=== PATIENT | female | born 1995 ===

== ENCOUNTER 2018-07-08 17:38 | Emergency (ER) | payer OTHER ==
[2018-07-08] MEDS ORDERED: Amoxicillin-Clav 875-125 mg Tab PO STA (21:02)
[2018-07-08] MEDS ORDERED: Amoxicillin-Clav 875-125 mg Tab PO ONE (21:16)
--- NOTE | 2018-07-08 22:07 | ED PDOC ---
HPI: Fever Time Seen by Provider: 07/08/18 19:18 Additional Comments: 23 year old female with no significant past medical history presents to the ED with a sore throat, fever and chills onset 1 day. Patient states that she woke up with a sore throat, chills, fever and body aches. Patient states that the last time she took medicine for her fever was 9X hours. Patient states that she is tolerating fluids PO. Patient also reports that she had a flu vaccine. Patient denies nausea, vomiting and diarrhea. PMD: None provided Past Medical History Reviewed: Historical Data, Nursing Documentation, Vital Signs Vital Signs: Last Vital Signs Temp 100.9 F H 07/08/18 20:49 Pulse 114 H 07/08/18 18:47 Resp 20 07/08/18 18:47 BP 124/88 07/08/18 18:47 Pulse Ox 97 07/08/18 18:47 JAVIER Report Viewed: Yes - Medical History PMH: No Chronic Diseases - Surgical History Surgical History: No Surg Hx - Family History Family History: States: No Known Family Hx - Home Medications Home Medications: Ambulatory Orders Medication Instructions Recorded Amoxicillin/Clavulanate [Augmentin 1 tab PO BID #14 tab 07/08/18 875 MG-125 MG] - Allergies Allergies/Adverse Reactions: Allergies Allergy/AdvReac Type Severity Reaction Status Date / Time No Known Allergies Allergy Verified 07/08/18 18:47 Review of Systems ROS Statement: Except As Marked, All Systems Reviewed And Found Negative Constitutional: Positive for: Fever, Chills ENT: Positive for: Other (Sore throat) Gastrointestinal: Negative for: Nausea, Vomiting, Diarrhea Musculoskeletal: Positive for: Other (Body aches) Physical Exam - Reviewed Nursing Documentation Reviewed: Yes Vital Signs Reviewed: Yes - Physical Exam Appears: Positive for: Uncomfortable (Febrile and tachycardic) Head Exam: Positive for: ATRAUMATIC, NORMOCEPHALIC Skin: Positive for: Normal Color, Warm, Dry Eye Exam: Positive for: Normal appearance, EOMI, PERRL ENT: Positive for: Other (Tonsil enlarged). Negative for: Tonsillar Exudate Neck: Positive for: Supple (Bilateral anterior cervical adenopathy ) Cardiovascular/Chest: Positive for: Regular Rate, Rhythm. Negative for: Murmur Respiratory: Positive for: Normal Breath Sounds. Negative for: Respiratory Distress Gastrointestinal/Abdominal: Positive for: Normal Exam, Soft. Negative for: Tenderness Extremity: Positive for: Normal ROM (upper and Lower). Negative for: Pedal King a Neurological/Psych: Positive for: Awake, Alert, Normal Tone, Oriented. Negative for: Motor/Sensory Deficits - Laboratory Results Result Diagrams: 07/08/18 22:44 07/08/18 22:44 - ECG O2 Sat by Pulse Oximetry: 97 (RA) Pulse Ox Interpretation: Normal Medical Decision Making Medical Decision Making: Time: 19:18 Initial Impression: 23 year old female with acute pharyngitis vs flu like symptoms Plan: -Urine -Amoxicillin/Clavulanate 1 tab PO -Ibuprofen 600 mg PO -Acetaminophen 975 mg PO STAT -predniSONE 60 mg PO STAT -Influenza A B -Rapid Strep Group A Antigen 2338 Labs reviewed and show no significant abnormality. Patient reports improvement in symptoms and stable for discharge. Diagnosis: strep pharyngitis Scribe Attestation: Documented by Leeanne Bill, acting as a scribe for Charanjit Ibanez MD Provider Scribe Attestation: All medical record entries made by the Scribe were at my direction and p ersonally dictated by me. I have reviewed the chart and agree that the record accurately reflects my personal performance of the history, physical exam, medical decision making, and the department course for this patient. I have also personally directed, reviewed, and agree with the discharge instructions and disposition Disposition - Clinical Impression Clinical Impression: Strep pharyngitis - Patient ED Disposition Is Patient to be Admitted: No - Disposition Disposition: Routine/Home Disposition Time: 23:38 Condition: STABLE Prescriptions: Amoxicillin/Clavulanate [Augmentin 875 MG-125 MG] 1 tab PO BID #14 tab Instructions: Strep Throat (DC) Forms: [employer] ([place])
[2018-07-08] MEDS ORDERED: Sodium Chloride 0.9% 1,000 ML IV STA (22:26)
[2018-07-08 22:49] LABS: BASO # 0.1 K/uL (0.0-0.2); BASO % 0.9 % (0.0-2.0); HEMOGLOBIN 10.8 g/dL (12.0-16.0); LYMPH # 0.7 K/uL (1.0-4.3); LYMPH % 5.6 % (20.0-40.0); MEAN CELL VOLUME 79.4 fl (81.0-99.0); MEAN CORPUSCULAR HEMOGLOBIN 25.5 pg (27.0-31.0); MEAN CORPUSCULAR HGB CONC 32.2 g/dL (33.0-37.0); MEAN PLATELET VOLUME 7.2 fl (7.2-11.7); MONO # 0.4 K/uL (0.0-0.8); MONO % 2.9 % (0.0-10.0); NEUT # 11.8 K/uL (1.8-7.0); NEUT % 90.6 % (50.0-75.0); PLATELET COUNT 453 K/uL (130-400); RBC 4.24 Mil/uL (3.80-5.20); RED CELL DISTRIBUTION WIDTH 15.4 % (11.5-14.5)
[2018-07-08 22:57] LABS: ALB/GLOB RATIO 1.2 (1.0-2.1); ALBUMIN 4.7 g/dL (3.5-5.0); ALT/SGPT 27 U/L (9-52); AST/SGOT 32 U/L (14-36); BLOOD UREA NITROGEN 13 mg/dl (7-17); CALCIUM 9.7 mg/dL (8.4-10.2); GFR NON-AFRICAN AMERICAN > 60
[2018-07-08 23:46] VITALS: BP 119/83; PULSE 82; RESP 16; TEMP 99; O2SAT 100
[2018-07-08 23:54] LABS: BANDS 4 % (0-2); BASOPHIL 1 % (0-2); HYPOCHROMIC SLIGHT; LYMPHOCYTE 6 % (20-50); MONOCYTE 3 % (0-10); NEUTROPHIL 86 % (42-75); PLATELET ESTIMATE SLIGHTLY INCREASED (NORMAL); TOTAL CELLS COUNTED 100
== END 2018-07-08 23:46 | disposition home or self-care (01) ==
LOC: H.ER 17:38
DX: J02.0 Streptococcal pharyngitis (principal)
CPT/HCPCS: 80053; 81025; 83605; 85025; 87040; 87205; 87430; 87804; 99284; J1885; J7030

== ENCOUNTER 2018-07-15 18:17 | Emergency (ER) | payer OTHER ==
[2018-07-15 18:50] VITALS: BP 129/72; PULSE 84; RESP 19; TEMP 98.8; O2SAT 99
--- NOTE | 2018-07-15 21:48 | ED PDOC ---
HPI: General Adult Time Seen by Provider: 07/15/18 21:20 Chief Complaint (Nursing): Abnormal Labs Chief Complaint (Provider): Abnormal Labs History Per: Patient History/Exam Limitations: no limitations Onset/Duration Of Symptoms: Days Current Symptoms Are (Timing): Still Present Additional Complaint(s): 23 y/o female with no significant PMHx presents to the ED after receiving a call to return to the ED for abnormal labs. Patient was seen in this ED seven days ago for evaluation of a sore throat, fever and chills. At that time, patient had blood cultures drawn that have now resulted positive. Patient reports of finishing course of Augmentin. Patient denies any complaints at this time. PMD: no provider Past Medical History Reviewed: Historical Data, Nursing Documentation, Vital Signs Vital Signs: Last Vital Signs Temp 98.8 F 07/15/18 18:47 Pulse 84 07/15/18 18:47 Resp 19 07/15/18 18:47 BP 129/72 07/15/18 18:47 Pulse Ox 99 07/15/18 18:47 - Medical History PMH: No Chronic Diseases - Surgical History Surgical History: No Surg Hx - Family History Family History: States: Unknown Family Hx - Home Medications Home Medications: Ambulatory Orders Medication Instructions Recorded Amoxicillin/Clavulanate [Augmentin 1 tab PO BID #14 tab 07/08/18 875 MG-125 MG] Amoxicillin/Clavulanate [Augmentin 1 tab PO BID #6 tab 07/15/18 875 MG-125 MG] - Allergies Allergies/Adverse Reactions: Allergies Allergy/AdvReac Type Severity Reaction Status Date / Time No Known Allergies Allergy Verified 07/08/18 18:47 Review of Systems ROS Statement: Except As Marked, All Systems Reviewed And Found Negative Constitutional: Positive for: Other (abnormal labs) Physical Exam - Reviewed Nursing Documentation Reviewed: Yes Vital Signs Reviewed: Yes - Physical Exam Appears: Positive for: No Acute Distress Head Exam: Positive for: ATRAUMATIC, NORMOCEPHALIC Skin: Positive for: Normal Color, Warm, Dry Eye Exam: Positive for: Normal appearance, EOMI, PERRL ENT: Positive for: Normal ENT Inspection Neck: Positive for: Normal, Painless ROM, Supple Cardiovascular/Chest: Positive for: Regular Rate, Rhythm. Negative for: Murmur Respiratory: Positive for: Normal Breath Sounds. Negative for: Respiratory Distress Gastrointestinal/Abdominal: Positive for: Normal Exam, Soft. Negative for: Tenderness Extremity: Positive for: Normal ROM. Negative for: Deformity Neurological/Psych: Positive for: Awake, Alert, Oriented (x3). Negative for: Motor/Sensory Deficits - Laboratory Results Result Diagrams: 07/15/18 21:40 07/15/18 21:40 - ECG O2 Sat by Pulse Oximetry: 99 (RA) Pulse Ox Interpretation: Normal Medical Decision Making Medical Decision Making: Time: 2126 Plan: call back for positive blood cultures -- CMP -- CBC with Differentials -- Blood Culture Time: 2223 -- Previous records reviewed: Blood culture preliminary results demonstrated gram negative joseph. Final Gram stain positive for bacili. -- Spoke to Dr. Ortiz, infectious disease education teacher, who believes results sound like a contaminant. Dr. Ortiz requesting to add three additional days worth of antibiotics as patient should have been prescribed a 10 day course not a 7 day course. Patient will be instructed to follow up with Dr. Ortiz and repeat blood culture to be obtained as outpt. noted that wbc came down from the 7th when initial bloodwork and cultures drawn. pt feels well, stable for dc. instructions given as to plan. she is agreeable -- Scribe Attestation: Documented by Beatrice Kowalski, acting as a scribe forJill Barajas MD. Provider Scribe Attestation: All medical record entries made by the Scribe were at my direction and p ersonally dictated by me. I have reviewed the chart and agree that the record accurately reflects my personal performance of the history, physical exam, medical decision making, and the department course for this patient. I have also personally directed, reviewed, and agree with the discharge instructions and disposition. Disposition - Clinical Impression Clinical Impression: Strep pharyngitis - Patient ED Disposition Is Patient to be Admitted: No Counseled Patient/Family Regarding: Studies Performed, Diagnosis, Need For Followup - Disposition Referrals: [facility] [Outside] [facility] [Outside] Disposition: Routine/Home Disposition Time: 22:25 Condition: IMPROVED Additional Instructions: follow up with your primary doctor in 2 days, you will need repeat blood cultures pending the results of these cultures return to the ED with any worsening or concerning symptoms Prescriptions: Amoxicillin/Clavulanate [Augmentin 875 MG-125 MG] 1 tab PO BID #6 tab Instructions: Sore Throat, Adult (DC) Forms: [employer] ([place])
[2018-07-15 22:06] LABS: BASO # 0.1 K/uL (0.0-0.2); BASO % 1.3 % (0.0-2.0); EOS # 0.2 K/uL (0.0-0.7); EOS % 4.2 % (0.0-4.0); HEMOGLOBIN 10.7 g/dL (12.0-16.0); LYMPH # 2.9 K/uL (1.0-4.3); LYMPH % 59.5 % (20.0-40.0); MEAN CELL VOLUME 80.2 fl (81.0-99.0); MEAN CORPUSCULAR HEMOGLOBIN 25.8 pg (27.0-31.0); MEAN CORPUSCULAR HGB CONC 32.2 g/dL (33.0-37.0); MEAN PLATELET VOLUME 6.8 fl (7.2-11.7); MONO # 0.3 K/uL (0.0-0.8); MONO % 5.2 % (0.0-10.0); NEUT # 1.5 K/uL (1.8-7.0); NEUT % 29.8 % (50.0-75.0); NRBC % 0.1 % (0.0-0.0); RBC 4.13 Mil/uL (3.80-5.20); RED CELL DISTRIBUTION WIDTH 15.7 % (11.5-14.5); WHITE BLOOD COUNT 4.9 K/uL (4.8-10.8)
[2018-07-15 22:37] LABS: ALB/GLOB RATIO 1.4 (1.0-2.1); ALBUMIN 4.8 g/dL (3.5-5.0); ALT/SGPT 32 U/L (9-52); AST/SGOT 39 U/L (14-36); BLOOD UREA NITROGEN 15 mg/dl (7-17); CALCIUM 9.9 mg/dL (8.4-10.2); GFR NON-AFRICAN AMERICAN > 60
== END 2018-07-15 22:48 | disposition home or self-care (01) ==
LOC: H.ER 18:17
DX: J02.9 Acute pharyngitis, unspecified (principal); J02.0 Streptococcal pharyngitis